=== PATIENT | female | born 1995 | race Caucasian/White ===

== ENCOUNTER → 2021-10-12 | Day surgery (SDC) | payer BC ==
[~2021-10-12] MED LIST: HYDROCODONE-AC1 EACH PO; IBUPROFEN600 MG PO
[2021-10-12 08:15] LABS: HEMOGLOBIN 13.4 gm/dl (12.3-15.3); RED BLOOD COUNT 4.62 M/UL (4.00-5.10); WHITE BLOOD COUNT 7.1 K/UL (4.5-11.0)
== END | disposition home or self-care (01) ==
LOC: OR 07:29
PROVIDERS: Obstetrics & Gynecology
DX: O02.1 Missed abortion (principal); K50.90 Crohn's disease, unspecified, without complications
CPT/HCPCS: 81001; 85025; 86850; 86900; 86901; J1100; J2001; J2250; J2405; J2704; J2765; J3010; J7120